=== PATIENT | male | born 1970 ===

== ENCOUNTER 2023-07-08 08:59 | Outpatient (CLI) | payer OTHER | END 2023-07-08 23:59 | disposition short-term general hospital (02) | LOC: EMS 08:59 | DX: R41.82 Altered mental status, unspecified (principal); V47.5XXA Car driver injured in collision with fixed or stationary object in traffic accident, initial encounter; Y92.414 Local residential or business street as the place of occurrence of the external cause; I10 Essential (primary) hypertension | CPT/HCPCS: A0425; A0429 ==